=== PATIENT | male | born 1955 | race Hispanic/Latino ===

== ENCOUNTER → 2017-01-16 | Outpatient (CLI) | payer OTHER ==
[~2017-01-16] MED LIST: LIDOCAINE VISC 2% SOLN 15 ML UDC ONE
== END ==
LOC: WCC 08:27
PROVIDERS: ATTEND Family Medicine
DX: I87.332 Chronic venous hypertension (idiopathic) with ulcer and inflammation of left lower extremity (principal); L97.322 Non-pressure chronic ulcer of left ankle with fat layer exposed; I87.2 Venous insufficiency (chronic) (peripheral); R60.0 Localized edema

== ENCOUNTER → 2021-05-12 | Outpatient (CLI) | payer BC ==
[~2021-05-12] MED LIST changes: -LIDOCAINE VISC 2% SOLN 15 ML UDC ONE; +LIDOCAINE/PRILOCAINE 2.5-2.5% KIT ONE; +MUPIROCIN 2% OINT 22 GM TUBE ONE
== END ==
LOC: WCC 09:14
PROVIDERS: ATTEND Internal Medicine Infectious Disease
DX: I87.312 Chronic venous hypertension (idiopathic) with ulcer of left lower extremity (principal); L97.321 Non-pressure chronic ulcer of left ankle limited to breakdown of skin; I87.2 Venous insufficiency (chronic) (peripheral); R60.0 Localized edema

== ENCOUNTER → 2021-05-19 | Outpatient (CLI) | payer BC | LOC: WCC 09:50 | PROVIDERS: ATTEND Internal Medicine Infectious Disease | DX: I87.312 Chronic venous hypertension (idiopathic) with ulcer of left lower extremity (principal); L97.321 Non-pressure chronic ulcer of left ankle limited to breakdown of skin; I87.2 Venous insufficiency (chronic) (peripheral); R60.0 Localized edema ==

== ENCOUNTER → 2021-06-02 | Outpatient (CLI) | payer BC | LOC: WCC 08:30 | PROVIDERS: ATTEND Internal Medicine Infectious Disease | DX: I87.312 Chronic venous hypertension (idiopathic) with ulcer of left lower extremity (principal); L97.321 Non-pressure chronic ulcer of left ankle limited to breakdown of skin; I87.2 Venous insufficiency (chronic) (peripheral); R60.0 Localized edema ==

== ENCOUNTER → 2021-06-23 | Outpatient (CLI) | payer BC ==
[~2021-06-23] MED LIST changes: -LIDOCAINE/PRILOCAINE 2.5-2.5% KIT ONE; -MUPIROCIN 2% OINT 22 GM TUBE ONE; +TRYPSIN/BALSAM PERU/CASTOR OIL ONE
== END ==
LOC: WCC 09:31
PROVIDERS: ATTEND Internal Medicine Infectious Disease
DX: I87.312 Chronic venous hypertension (idiopathic) with ulcer of left lower extremity (principal); L97.321 Non-pressure chronic ulcer of left ankle limited to breakdown of skin; I87.2 Venous insufficiency (chronic) (peripheral); R60.0 Localized edema